=== PATIENT | male | born 1965 | race African-American/Black ===

== ENCOUNTER 2021-10-16 03:20 | Emergency (ER) | payer SELFPAY ==
--- NOTE | ~2021-10-16 | CT_ITS ---
EXAMINATION: CT abdomen pelvis w con DATE: 10/16/2021 06:02 INDICATION: Diffuse abdominal pain TECHNIQUE: Computed tomography (CT) of the abdomen and pelvis was performed with 100 CC Omnipaque 350 intravenous contrast. Automated exposure control and iterative reconstruction technique were employe d. Exam dose: 594.01 mGy-cm total exam DLP. COMPARISON: None. FINDINGS: Mild dependent atelectasis in the lower lobes, right greater than left. Scattered calcified pulmonary granulomas. Heart size is within normal range. No pericardial or pleural effusion. Hepatic steatosis, most prominent in the fissure for the ligamentum teres. There is sludge layering in the dependent aspect of the gallbladder. The gallbladder is distended. Th e gallbladder wall measures approximately 1.8 mm thickness. No pericholecystic fluid or fat stranding is noted. There is no bile duct or pancreatic duct dilatation. No hepatic, pancreatic, splenic or adrenal space-occupying mass lesion. Mild right renal scarring. 1.3 cm left renal cyst. No urinary tract calculus or hydroureteronephrosis . The urinary bladder and prostate gland are unremarkable. Normal caliber of the abdominal aorta. No intraperitoneal or retroperitoneal or pelvic mass lesion or adenopathy or ascites. Normal appendix. Mild diverticulosis of the left colon; no CT evidence of diverticulitis. No bowel ob struction or intraperitoneal free air. Bilateral hip osteoarthrosis, greater on the right. No suspicious osteolytic or osteoblastic lesions. IMPRESSION: Gallbladder distention, sludge, nonspecific mild gallbladder wall thickening Normal appendix Mild colonic diverticulosis; no CT evidence of diverticulitis 1.3 cm left renal cyst Reviewed, dictated and finalized at [facility] Reviewed, dictated and finalized at [facility] [employer]
[2021-10-16 03:27] VITALS: BP 206/104; PULSE 81; RESP 20; TEMP 36.4; O2SAT 100
[2021-10-16 04:06] LABS: Basophils Percent Auto 0.3 % (0.2-1.2); Eosinophils Percent Auto 0.3 % (0-4.4); Hematocrit 44.4 % (42.0-52.0); Hemoglobin 15.3 g/dL (14.0-18.0); Immature Granulocyte Absolute 0.06 K/mm3 (0.00-0.031); Immature Granulocyte Percent A 0.5 % (0-0.5); Lymphocytes Absolute Auto 0.64 K/mm3 (0.9-3.2); Lymphocytes Percent Auto 5.3 % (18.3-44.2); Mean Corpuscular HGB Conc 34.5 g/dl (32-36); Mean Corpuscular Hemoglobin 32.1 pg (26-34); Mean Corpuscular Volume 93.3 fl (80-100); Mean Platelet Volume 11.7 fl (7.4-10.4); Monocytes Percent Auto 8.1 % (2.6-8.5); Neutrophils Absolute Auto 10.4 K/mm3 (1.3-6.7); Neutrophils Percent Auto 85.5 % (45.5-73.1); Platelet Count Result 209 k/mm3 (150-375); Red Blood Count 4.76 M/mm3 (4.6-6.20); Red Cell Distribution Width 11.5 % (11.5-14.5); White Blood Count 12.1 K/mm3 (4.5-10.0)
[2021-10-16 04:17] LABS: Alanine Aminotransferase 125 U/L (4-50); Albumin Level 4.5 g/dL (3.5-5.1); Alkaline Phosphatase 200 U/L (38-126); Anion Gap 8 mmol/L (8-16); Aspartate Amino Transferase 258 U/L (17-59); Bilirubin,Total 1.5 mg/dL (0.2-1.3); Blood Urea Nitrogen 12 mg/dL (9-20); Calcium 8.9 mg/dL (8.4-10.2); Carbon Dioxide 29 mmol/L (22-30); Chloride 100 mmol/L (98-107); Estimated CRCL calculation 82 ml/min; Estimated Glomerular Filt Rate > 60; Glucose 345 mg/dL (65-110); Potassium 4.1 mmol/L (3.4-5.0); Sodium 137 mmol/L (137-145)
[2021-10-16 05:00] VITALS: BP 181/109; PULSE 93; RESP 18; O2SAT 100
--- NOTE | 2021-10-16 05:35 | ED.ABDPAIN ---
HPI - Abdominal Pain General Chief Complaint: Abdominal Pain Stated Complaint: N/V, SYNCOPE Time Seen by Provider: 10/16/21 05:29 Source: patient History of Present Illness HPI narrative: Patient presents with periumbilical abdominal pain with nausea and vomiting. Patient reports his symptoms started this morning gotten progressively worse today, and ambulance to bring him in for evaluation he is unsure what triggered his pain reports he did have a whopper for dinner. Pain is sharp, constant, no clear aggravating or alleviating symptoms radiates across his entire abdomen denies any diarrhea or fevers. Related Data Home Medications Medication Instructions Recorded Confirmed lisinopril 40 mg PO DAILY 10/16/21 10/16/21 metformin 1,000 mg PO BID 10/16/21 10/16/21 Allergies Allergy/AdvReac Type Severity Reaction Status Date / Time No Known Allergies Allergy Verified 10/16/21 04:26 Review of Systems Review of Systems: CONSTITUTIONAL: Denies fever, chills, or sweats. EYES: Denies visual changes, redness, or discharge. ENT: Denies rhinorrhea, congestion, sore throat, or otalgia. CARDIOVASCULAR: Denies chest pain, palpitations, or edema. RESPIRATORY: Denies cough or dyspnea. GASTROINTESTINAL: Abdominal pain with nausea vomiting GENITOURINARY: Denies dysuria or hematuria. SKIN: Denies rash or itching. MUSCULOSKELETAL: Denies back pain, joint pain, or myalgia. NEUROLOGIC: Denies headache, numbness, dizziness, or weakness. PSYCHIATRIC: Denies anxiety or depression. All systems reviewed & are unremarkable except as noted in HPI and below PMFSH Past Medical History Medical History (Updated 10/16/21 @ 07:27 by King Bella MD) Diabetes Exam Narrative: GENERAL: Well-appearing, well-nourished, and in no acute distress. HEAD: Normocephalic, atraumatic. EYES: PERRLA and EOMI. ENT: Nares clear, no rhinorrhea or epistaxis. Mucous membranes moist. NECK: Supple. No masses. No JVD ABDOMEN: Mild diffuse tenderness mid abdomen soft, nondistended, normal active bowel sounds. EXTREMITIES: Normal range of motion. No edema. SKIN: Warm, dry, no rash. NEURO: No focal deficits. Alert and oriented x3. PSYCH: Normal mood and affect. Course Reevaluation(s) Reevaluation #1: Patient reports feeling much improved results and plan reviewed with patient. Patient is comfortable outpatient plan. Date: 10/16/21 Time: 07:25 Vital Signs Vital signs: Vital Signs Temperature 36.4 C L 10/16/21 03:27 Pulse Rate 81 10/16/21 03:27 Respiratory Rate 20 10/16/21 03:27 Blood Pressure 206/104 H 10/16/21 03:27 Pulse Oximetry 100 10/16/21 03:27 Temperature 37.3 C 10/16/21 07:29 Pulse Rate 94 10/16/21 07:29 Respiratory Rate 19 10/16/21 07:29 Blood Pressure 156/88 H 10/16/21 07:29 Pulse Oximetry 100 10/16/21 07:29 MDM - Abdominal Pain MDM Narrative Medical decision making narrative: H&P as above, vss, pt looks clinically well, exam mild diffuse abdominal pain, labs with leukocytosis likely stress response and hyperglycemia also likely stress response, img without acute process, additional labs/img considered, symptomatic relief available as needed, on reevaluation pt continues to looks clinically well. Symptoms may of unclear etiology may represent foodborne illness versus viral process, dns severe sepsis, severe dehydration, bowel, perforation, cholecystitis (no focal tenderness on the right upper quadrant negative Monreal's), pancreatitis. plan to tx/monitor as op w/ pcm f/u findings/plan discussed with pt, pt agree/comfortable with plan, return precautions given Lab Data Result diagrams: 10/16/21 03:51 10/16/21 03:51 Labs: Lab Results 10/16/21 10/16/21 10/16/21 Range/Units 03:51 03:51 03:51 WBC 12.1 H (4.5-10.0) K/mm3 RBC 4.76 (4.6-6.20) M/mm3 Hgb 15.3 (14.0-18.0) g/dL Hct 44.4 (42.0-52.0) % MCV 93.3 (80-100) fl MCH 32.1 (26-34) pg MCHC 34.5
[2021-10-16 06:33] LABS: Lipase 298 U/L (23-300)
[2021-10-16] MEDS: SODIUM CHLORIDE 0.9% IV 1,000 ML 999 ML IV CONT ×2 (06:41→07:24)
[2021-10-16] MEDS: ONDANSETRON INJ 4 MG/2 ML VIAL IV PUSH (06:42)
[2021-10-16 06:45] VITALS: PULSE 93; RESP 16
[2021-10-16 06:46] VITALS: BP 161/103; PULSE 93; RESP 16
[2021-10-16 07:04] LABS: Add Urine Microscopic? YES; Amorphous Sediment Urine Few; Appearance Urine Cloudy (Clear); Bacteria Urine Trace /hpf; Bilirubin Urine Negative (Negative); Blood Urine Negative (Negative); Color Urine Yellow (Yellow); Glucose Urine UA 3+ mg/dL (Negative); Ketones Urine Trace mg/dL (Negative); Leukocyte Esterase Ur Negative LEU/UL (Negative); Mucus Urine Rare /lpf; Nitrate Urine Negative (Negative); Protein Urine Negative (Negative); RBC Urine 0-2 /hpf (0-2); Squamous Epithelial Cell Urine Rare /hpf (Few)
--- NOTE | 2021-10-16 07:19 | PC.NURSE ---
Report give to Jyoti LYON at bedside.
[2021-10-16 07:29] VITALS: BP 156/88; PULSE 94; RESP 19; TEMP 37.3; O2SAT 100
[2021-10-16 07:45] VITALS: BP 159/93; PULSE 91; RESP 16; TEMP 37.2; O2SAT 100
--- NOTE | 2021-10-16 07:55 | PC.NURSE ---
BOLUS GIVEN ON PRESSURE BAG PT TOLERATED PROCEDURE WELL
[2021-10-16 08:02] LABS: Glucose Point of Care 251 mg/dl (65-105)
--- NOTE | 2021-10-18 15:30 | PC.NURSE ---
LATE ENTRY This note is being entered to document information to the patient's record. The following information was omitted on [10/18/2021], by [Jyoti Frank RN]. Normal Saline stopped at 0714 and 0752 on 10/16/2021
== END 2021-10-16 07:55 | disposition home or self-care (01) ==
PROVIDERS: Emergency Provider Emergency Medicine
DX: E11.65 Type 2 diabetes mellitus with hyperglycemia (principal); R10.33 Periumbilical pain; R11.2 Nausea with vomiting, unspecified; Z79.84 Long term (current) use of oral hypoglycemic drugs; N28.1 Cyst of kidney, acquired; K57.90 Diverticulosis of intestine, part unspecified, without perforation or abscess without bleeding; R93.2 Abnormal findings on diagnostic imaging of liver and biliary tract
CPT/HCPCS: 36415; 74177; 80053; 81001; 82948; 83690; 85025; 96361; 96374; 99284; J2405; J7030; Q9967